=== PATIENT | male | born 1980 | race Two or more races ===

== ENCOUNTER 2019-04-06 21:46 | Emergency (ER) | payer MEDICAID ==
[~2019-04-06] VITALS: Ht 185.4 cm; Wt 90.7 kg
--- NOTE | 2019-04-06 21:53 | NUR ---
PT BIBFRIEND C/O CONSTANT CHEST PAIN RADIATING DOWN L ARM X 6 HOURS. DENIES SOB, DENIES CARDIAC HX. PT AOX4. NAD NOTED. RESP EVEN AND UNLABORED. PT [place] SPEAKING ONLY. PT ON MONITOR IN BED 10 WITH FRIENDS AT BEDSIDE. WILL CONTINUE TO MONITOR.
--- NOTE | 2019-04-06 22:34 | NUR ---
PHLEB AT BEDSIDE FOR LAB DRAW
[2019-04-06 22:37] LABS: BASOPHILS % (AUTO) 0.4 % (0.0-2.0); EOSINOPHILS % (AUTO) 1.6 % (0.0-6.0); HEMATOCRIT 45 % (39-51); HEMOGLOBIN 15.6 g/dL (13.5-17.5); LYMPHOCYTES % (AUTO) 36.8 % (20.0-44.0); MEAN CORPUSCULAR HGB CONC 35 g/dl (31.0-36.0); MEAN CORPUSCULAR VOLUME 89 fL (80-96); MONOCYTES # (AUTO) 0.7 /CMM (0.1-1.30); MONOCYTES % (AUTO) 8.3 % (2.0-12.0); NEUTROPHILS # (AUTO) 4.3 /CMM (1.8-8.9); NEUTROPHILS % (AUTO) 52.9 % (43.0-81.0); PLATELET COUNT (AUTO) 320 /CMM (150-450); RED BLOOD CELL COUNT(AUTO) 5.05 MIL/uL (4.5-6.0); WHITE BLOOD COUNT (AUTO) 8.1 K/uL (4.3-11.0)
[2019-04-06 22:45] LABS: CALCIUM, SERUM 8.6 mg/dL (8.5-10.1); CARBON DIOXIDE 28 mmol/L (21-32); CHLORIDE 104 mmol/L (98-107); CREATININE 1.1 mg/dL (0.6-1.3); GLUCOSE 109 mg/dL (74-106); POTASSIUM 3.8 mmol/L (3.5-5.1); SODIUM SERUM 137 mmol/L (136-145); UREA NITROGEN, BLOOD 22 mg/dL (7-18)
[2019-04-06] MEDS ORDERED: KETOROLAC TROMETHAMINE 15 MG/ML VIAL ONE (22:54)
[2019-04-06] MEDS ORDERED: KETOROLAC TROMETHAMINE INJ 30 MG/ML VIAL IV ONE (23:00)
--- NOTE | 2019-04-07 00:13 | NUR ---
TECH AT BEDSIDE FOR EKG
--- NOTE | 2019-04-07 01:29 | NUR ---
PHLEB AT BEDSIDE FOR TROP II
--- NOTE | 2019-04-07 02:25 | NUR ---
IV removed. Catheter intact and site benign. Pressure and 4x4 applied to site. No bleeding noted. Patient discharged to home in stable condition. Written and verbal after care instructions given. Patient verbalizes understanding of instruction. ambulatory with a steady gait
[2019-04-07 02:27] VITALS: BP 124/67
== END 2019-04-07 02:28 | disposition home or self-care (01) ==
LOC: ER 21:58
DX: R07.89 Other chest pain (principal); R94.31 Abnormal electrocardiogram [ECG] [EKG]
CPT/HCPCS: 36415 ×2; 71045; 80048; 84484 ×2; 85025; 85378; 93005 ×3; 96374; 99284; J1885

== ENCOUNTER 2021-06-12 15:43 | Emergency (ER) | payer OTHER ==
[~2021-06-12] VITALS: Ht 185.4 cm; Wt 90.7 kg
[2021-06-12 16:06] VITALS: BP 126/77
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
[2021-06-12] MEDS ORDERED: IBUP-1957 PO (18:06)
[2021-06-12] MEDS ORDERED: ONDA4TAB5 PO (18:07)
--- NOTE | 2021-06-12 18:13 | NUR ---
Patient discharged to home in stable condition. Written and verbal after care instructions given. Patient verbalizes understanding of instruction.
== END 2021-06-12 18:19 | disposition home or self-care (01) ==
LOC: ER 15:48
DX: S06.0X0A Concussion without loss of consciousness, initial encounter (principal); M25.512 Pain in left shoulder; R42 Dizziness and giddiness; Z79.899 Other long term (current) drug therapy; V49.49XA Driver injured in collision with other motor vehicles in traffic accident, initial encounter; Y93.89 Activity, other specified; Y92.488 Other paved roadways as the place of occurrence of the external cause; Y99.8 Other external cause status
CPT/HCPCS: 70450-TC; 72125-TC; 73030-TC

== ENCOUNTER 2022-08-21 15:45 | Emergency (ER) | payer OTHER ==
[~2022-08-21] VITALS: Ht 182.9 cm; Wt 90.7 kg
[~2022-08-21 15:45] MED LIST: IBUP-1957 PO; ONDA4TAB5 PO
[2022-08-21 18:13] VITALS: BP 129/79
--- NOTE | 2022-08-21 18:13 | NUR ---
Patient discharged to home in stable condition. Written and verbal after care instructions given. Patient verbalizes understanding of instruction.
[2022-08-22] MEDS ORDERED: AMOXICILLIN TRIHYDRATE 250 MG CAPSULE ONE ×2 (02:38→02:43)
== END 2022-08-21 18:14 | disposition home or self-care (01) ==
LOC: ER 15:46
DX: S13.4XXA Sprain of ligaments of cervical spine, initial encounter (principal); S00.03XA Contusion of scalp, initial encounter; R41.82 Altered mental status, unspecified; Z79.899 Other long term (current) drug therapy; V89.2XXA Person injured in unspecified motor-vehicle accident, traffic, initial encounter; Y93.89 Activity, other specified; Y92.89 Other specified places as the place of occurrence of the external cause; Y99.8 Other external cause status
CPT/HCPCS: 70450-TC; 72125-TC